=== PATIENT | female | born 1955 | race Caucasian/White ===

== ENCOUNTER 2017-02-26 18:15 | Inpatient (IN) | payer OTHER ==
[~2017-02-26] VITALS: Ht 167.6 cm; Wt 88.5 kg
[~2017-02-26 18:15] MED LIST: ALPRAZOLAM1 MG PO; CANDESARTAN CIL16 MG PO; CLARITIN10 M2 PO; EPIPEN 2-P0.3 MG/0.3 IM; ESTRADIOL1 MG PO; IBUPROFEN800 MG PO; INDOMETHACIN25 MG PO; KONDREMUL2.5 ML/5 M PO; METOPROLOL SUCC50 MG PO; PERCOCET 5-3251 EACH PO; SENNA S TABLET1 EA PO; TEMAZEPAM30 MG PO; TRAMADOL HCL50 MG PO
--- NOTE | 2017-02-27 01:24 | NUR ---
PT ARRIVED TO ROOM 128 AT 2100. TRANSFERRED SELF TO BED. INTERMITTENT RUNS OF V-TACH UP TO [address] VENTURA. PT FEELS FLUTTERING AND CHEST TIGHTNESS DURING THE ARRYTHMIAS. PT REMAINS ON MONITOR. REPORTS FEELING 'BAD' SINCE 0200 ON 02/25, WITH NAUSEA/VOMITING. HOWEVER LAST MONTH REPORTS HAVING HAD BRONCHITIS AND HAS INTERCOSTAL PAIN. APPROXIMATELY OVER THE LAST MONTH PT HAS HAD SOB, INTERMITTEND 'FLUTTERS' IN CHEST. PT CURRENTLY HAS GAS TYPE FEELING IN EPIGASTRIC AREA. LIKE A 'BUTTERFLY IS THERE', ACCOMPANIED BY BACK PAIN. DR BAUER UPDATED ON PT CONDITION. EPISDODES OF V-TACH DECREASING, OCCASIONAL PVC'S. PT TO BEDSIDE COMMODE TO VOID 400ML AT 2300. REPORTED FEELING WEAK AND SHAKY, NO INCREASING ECTOPY AT THAT TIME. O2 ON AT 1L WITH HUMIDIFICATION.
--- NOTE | 2017-02-27 02:11 | NUR ---
ASSISTED PT TO TURN TO SIDE. DENIES NEEDS. REPORT EPIGASTRIC AREA FEELING MORE LIKE 'HEARTBURN CURRENTLY. ECTOPY CONTINUES ON MONITOR WITH FREQUENT PVC'S.
--- NOTE | 2017-02-27 05:54 | NUR ---
PT ECTOPY LESS. REPORTS CHEST SORENESS 10/28. PT GIVEN WATER, DOING AM CARES.
--- NOTE | 2017-02-27 07:00 | EKG ---
[facility] [address] [facility] [place] [address] Signed Normal sinus rhythm Nonspecific ST abnormality Abnormal ECG No previous ECGs available Confirmed by RUBEN BAUER MD ([id number]) on 02/27/2017 7:00:12 AM Electronically Signed By: RUBEN BAUER MD 02/27/17 0700 PATIENT NAME: IRIS SAAVEDRA Electrocardiogram DATE OF : 55 PHYSICIAN: RUBEN BAUER MD REPORT #: [id number] REPORT IS CONFIDENTIAL AND NOT TO BE RELEASED WITHOUT AUTHORIZATION
--- NOTE | 2017-02-27 07:01 | EKG ---
[facility] [address] [facility] [place] [address] Signed Sinus rhythm with frequent and consecutive premature ventricular complexes Possible Left atrial enlargement Prolonged QT Abnormal ECG When compared with ECG of 26-FEB-2017 18:23, (Unconfirmed) premature ventricular complexes are now present Confirmed by RUBEN BAUER MD ([id number]) on 02/27/2017 7:01:31 AM Electronically Signed By: RUBEN BAUER MD 02/27/17 0701 PATIENT NAME: IRIS SAAVEDRA Electrocardiogram DATE OF : 55 PHYSICIAN: RUBEN BAUER MD REPORT #: [id number] REPORT IS CONFIDENTIAL AND NOT TO BE RELEASED WITHOUT AUTHORIZATION
--- NOTE | 2017-02-27 08:36 | NUR ---
PT CONTIOUES TO HAVE BURST OF V-TACH 6 TO 8 BEATS AT A TIME. NO S/S AT THIS TIME. DR BAUER INTO SEE PT NO NEW ORDERS AT THIS TIME.
--- NOTE | 2017-02-27 09:58 | NUR ---
CHART COPYED AND EMAILED TO DR VELASCO AT [facility] IN [place] AT THIS TIME.
--- NOTE | 2017-02-27 11:01 | NUR ---
PT UP TO THE BATHROOM AT THIS TIME, AMBULATED WELL AND MIN ASSISTANCE JUST TO MANAGE IV POLE.
--- NOTE | 2017-02-27 11:29 | NUR ---
FAXED SENT TO DR VELASCO OFFICE AT 10:13 FOLLOW UP CALL AT 11:30 THEY WILL CALL LATER WITH APPOINTMENT. DR BAUER NOTIFIED ALSO AT THIS TIME.
--- NOTE | 2017-02-27 11:41 | NUR ---
PT RESTING, ALERT AND ORIENTED. THIS IS A NEW EVENT IN HER LIFE, AND WE TALK, HAS FRIGHTENED HER. SHE SEEMS READY AND WILLING TO PAY CLOSE ATTENTION TO HER BODY, AND SEEMS OPEN TO HELP. PT REQUESTED PRAYER. WILL FOLLOW NEEDED
--- NOTE | 2017-02-27 12:28 | NUR ---
OFFERED TO ORDER LUNCH AT THIS TIME, BUT PT DENIES NEED FOR A LUNCH TRAY. PT GIVEN SOME WATER AND CRACKERS PER HER REQUEST.
--- NOTE | 2017-02-27 13:45 | NUR ---
PT DC'D TO HOME AT THIS TIME VIA W/C ALL FOLLOW UP APPOINTMENT MADE AND PT UNDERSTANDS DC'D INSTRUCTIONS.
== END 2017-02-27 13:45 | disposition home or self-care (01) | DRG 310 ==
LOC: ED 18:15 → CCU 20:49
PROVIDERS: ADMIT Internal Medicine
DX: I47.2 Ventricular tachycardia (principal); I49.3 Ventricular premature depolarization; I10 Essential (primary) hypertension; R11.0 Nausea; Z79.899 Other long term (current) drug therapy; Z82.49 Family history of ischemic heart disease and other diseases of the circulatory system; Z82.3 Family history of stroke; Z88.5 Allergy status to narcotic agent; Z88.2 Allergy status to sulfonamides; Z88.7 Allergy status to serum and vaccine; Z88.8 Allergy status to other drugs, medicaments and biological substances; Z87.39 Personal history of other diseases of the musculoskeletal system and connective tissue
CPT/HCPCS: 36415; 71020; 80053; 83735; 84484; 85025; 93005; 93010; 96374; 99285; J0282

== ENCOUNTER 2023-01-16 12:58 | Day surgery (SDC) | payer OTHER ==
[2023-01-16 13:17] VITALS: BP 169/47
--- NOTE | 2023-01-16 15:54 | NUR ---
01/16/23 1554 Hutton,Meka Mckeon 1549: DR. STEWART AT BEDSIDE TALKING WITH PATIENT. 1551: O2 TURNED OFF. PATIENT ON ROOM AIR. PATIENT DROWSY. SLEEPING WHEN NOT DISTURBED.
[2023-01-16 16:17] VITALS: BP 166/89
--- NOTE | 2023-01-17 12:58 | OR ---
[facility] [address] [place], [place] [address] Signed DATE OF OPERATION: 01/16/2023 SURGEON: Eugene Stewart MD PREOPERATIVE DIAGNOSIS: Constipation prone bowel habits, no bleeding or diarrhea. POSTOPERATIVE DIAGNOSIS: Small polyp of the left colon (excised). PROCEDURE: Total colonoscopy to cecum with cold morcellation polypectomy x1 and random biopsy of rectum x1. ANESTHESIA: Intravenous sedation, fentanyl 150 mcg and Versed 5 mg. INDICATIONS FOR THE PROCEDURE: This is a 67-year-old white woman is a patient of Flash Robbins and known to me from the past having undergone colonoscopy in 2011. At that time, she had right-sided abdominal pain and CT scan findings suggestive of terminal ileitis and stricture. Colonoscopy showed no evidence of abnormality including on biopsy. She generally has "easy constipation" as manifested by hard bowel movements and sometimes has constipation. She has no associated rectal bleeding. She is admitted at this time to undergo colonoscopy to better characterize her situation. She understands the risk of bleeding, infection, and perforation. FINDINGS: The prep was good. Complete colonoscopy was undertaken to the cecum without question. She had a small adenomatous-appearing polyp of the left colon, which was excised. Remaining colon was normal. DESCRIPTION OF PROCEDURE: The patient was brought to the endoscopy suite and placed in lateral decubitus position given intravenous sedation to the point of slurred speech and nystagmus. Digital rectal examination was normal. An Olympus video colonoscope was passed into the rectum and manipulated throughout the colon, ultimately intubating the cecum itself. The ileocecal valve and appendiceal orifice were normal. The scope was withdrawn from that point. Examination showed no sign of abnormality until the distal left colon, where a small mucosal abnormality consistent with small polyp was noted, this was excised with cold Electronically Signed By: EUGENE STEWART MD 01/17/23 1258 PATIENT NAME: IRIS SAAVEDRA OPERATIVE REPORT DATE OF : 55 REPORT #: [id number] PHYSICIAN: EUGENE STEWART MD PCP: FLASH ROBBINS PAC REPORT IS CONFIDENTIAL AND NOT TO BE RELEASED WITHOUT AUTHORIZATION [facility] [address] [place], [place] [address] Signed morcellation technique. The scope was further withdrawn and retroflexed view undertaken, which was normal. A biopsy was taken of the rectum randomly to assess for colitis. The scope was removed. The patient was taken to the recovery room in good condition. CONCLUDING DIAGNOSIS: Small polyp of colon, otherwise normal. PLAN: We will review her pathology report. If an adenoma is noted, we recommend repeat colonoscopy in 5 years. She will return to the ongoing care of Flash Robbins otherwise. Additionally, recommend high-fiber diet to minimize constipation. MD ALIYAH Warren/LILLIANAL /[id number] cc: Flash Robbins PA-C Copies: ~ Electronically Signed By: EUGENE STEWART MD 01/17/23 1258 PATIENT NAME: IRIS SAAVEDRA OPERATIVE REPORT DATE OF : 55 REPORT #: [id number] PHYSICIAN: EUGENE STEWART MD PCP: FLASH ROBBINS PAC REPORT IS CONFIDENTIAL AND NOT TO BE RELEASED WITHOUT AUTHORIZATION
== END 2023-01-16 16:25 | disposition home or self-care (01) ==
LOC: OPS 12:58 → DS 13:04 → OPS 14:00 → DS 14:00 → OPS 16:25
PROVIDERS: ATTEND Surgery
PROC: 0DBP8ZX Excision of Rectum, Via Natural or Artificial Opening Endoscopic, Diagnostic (ICD-10-PCS; 2023-01-16)
PROC: 0DBG8ZX Excision of Left Large Intestine, Via Natural or Artificial Opening Endoscopic, Diagnostic (ICD-10-PCS; principal; 2023-01-16 14:00)
DX: K62.89 Other specified diseases of anus and rectum (principal); K63.5 Polyp of colon; K59.09 Other constipation; N81.6 Rectocele; Z90.711 Acquired absence of uterus with remaining cervical stump; Z90.49 Acquired absence of other specified parts of digestive tract; Z98.890 Other specified postprocedural states; I10 Essential (primary) hypertension; Z88.5 Allergy status to narcotic agent; Z88.2 Allergy status to sulfonamides; Z91.030 Bee allergy status; Z91.011 Allergy to milk products; Z79.899 Other long term (current) drug therapy
CPT/HCPCS: 99153; G0500; J2250; J2405; J3010; J7121

== ENCOUNTER 2025-06-06 14:56 | Emergency (ER) | payer MEDICARE, OTHER ==
[~2025-06-06] VITALS: Ht 167.6 cm; Wt 76.0 kg
--- OUTSIDE RECORDS SUMMARY | ~2025-06-06 | XMS | Continuity of Care Document ---
Demographics + + + | Address | [address] | | | [place] [address] | + + + | Preferred Language | Unknown | + + + | Marital Status | Never | + + + | Advent Affiliation | Unknown | + + + | Race | White | + + + | Ethnic Group | Not or | + + + Author + + + | Author | [facility] | + + + | Organization | [facility] | + + + | Address | [address] | | | [place] [address] | + + + | Phone | | + + + Care Team Providers + + + + | Care Health Technician Name | Role | Phone | + + + + Unavailable | Unavailable | + + + + Allergies No information. Encounters No information. Functional Status No information. Immunizations No information. Medications + + + + | date | description | facility | + + + + | (no date) | AL[facility]OLAM [facility] | | | | [facility] | + + + + | (no date) | ESTRADIOL | [facility] | | | | [facility] | + + + + | (no date) | IBUPROFEN | [facility] | | | | [facility] | + + + + | (no date) | INDOMETHACIN | [facility] | | | | [facility] | + + + + | (no date) | TEMAZEPAM | [facility] | | | | [facility] | + + + + | (no date) | ASPIRIN | [facility] | | | | [facility] | + + + + | (no date) | CANDESARTAN CILEXETIL | [facility] | | | | [facility] | + + + + | (no date) | EPINEPHRINE | [facility] | | | | [facility] | + + + + | (no date) | LORATADINE | [facility] | | | | [facility] | + + + + | (no date) | METOPROLOL SUCCINATE | [facility] | | | | [facility] | + + + + Problems No information. Procedures No information. Results/Labs No information. Social History +--------+ + + | date | description | facility | +--------+ + + Vital Signs No information."
[~2025-06-06 14:56] MED LIST changes: +LO-DOSE ASPIRIN81 MG PO
--- OUTSIDE RECORDS SUMMARY | 2025-06-06 14:57 | XMS ---
PreManage Notification: IRIS SAAVEDRA Security [employer] Consultant Events No recent Security Events currently on file [facility] There are no care providers on record at this time. Tadeo has no Care Guidelines for this patient. Deon VISIT COUNT (12 MO.) 1 [facility] TOTAL 1 NOTE: Visits indicate total known visits. ED/C VISIT TRACKING (12 MO.) 06/06/2025 14:57 [facility] [place] TYPE: Emergency COMPLAINT: - SHORTNESS OF BREATH INPATIENT VISIT TRACKING (12 MO.) No inpatient visits to display in this time frame [email or web address]
[2025-06-06 15:23] LABS: BASOPHILS 0.7 % (0.1-1.2); EOSINOPHILS 2.5 % (0.7-5.8); LYMPHOCYTES 41.6 % (19.3-51.7); MCH 29.0 PG (25.6-32.2); MCHC 34.6 g/dL (32.2-35.5); MCV 83.8 fL (79.4-94.8); MONOCYTES 6.4 % (4.7-12.5); NEUTROPHILS 48.5 % (34.0-71.1); RBC 4.62 M/uL (3.93-5.22)
[2025-06-06 15:40] LABS: ALT (SGPT) 16.0 U/L (14-59); AST (SGOT) 15.0 U/L (15-37); GLOMERULAR FILTRATION RATE,EST 34.0 mL/min (>60); PROTEIN, TOTAL 7.4 g/dL (6.4-8.2); UREA NITROGEN 13.0 mg/dL (7-18)
[2025-06-06] MEDS ORDERED: POTASSIUM CHLORIDE 10 MEQ TABCR PO ONE (16:00)
[2025-06-06 16:55] VITALS: BP 170/69
--- NOTE | 2025-06-07 18:53 | EKG ---
[facility] [address] [facility] [place] [address] Signed Normal sinus rhythm Possible Left atrial enlargement Nonspecific ST and T wave abnormality Abnormal ECG When compared with ECG of 26-FEB-2017 22:01, premature ventricular complexes are no longer present Confirmed by Loyd Ocasio MD () on 06/07/2025 6:53:21 PM Electronically Signed By: LOYD OCASIO MD 06/07/251852 PATIENT NAME: IIRS SAAVEDRA Electrocardiogram DATE OF : 55 PHYSICIAN: LOYD OCASIO MD REPORT #: [id number] REPORT IS CONFIDENTIAL AND NOT TO BE RELEASED WITHOUT AUTHORIZATION
== END 2025-06-06 16:55 | disposition home or self-care (01) ==
LOC: ED 14:56
PROVIDERS: Emergency Medicine
DX: I95.9 Hypotension, unspecified (principal); R55 Syncope and collapse; I10 Essential (primary) hypertension; Z79.82 Long term (current) use of aspirin; Z79.899 Other long term (current) drug therapy; Z88.2 Allergy status to sulfonamides; Z91.030 Bee allergy status; Z88.5 Allergy status to narcotic agent; Z88.8 Allergy status to other drugs, medicaments and biological substances; Z87.891 Personal history of nicotine dependence
CPT/HCPCS: 36415; 71045; 80053; 83735; 84484; 85025; 93005; 93010; 99285-25; A9270